=== PATIENT | male | born 1975 | race Caucasian/White ===

== ENCOUNTER 2023-06-10 10:59 | Day surgery (SDC) | payer OTHER ==
[~2023-06-10] VITALS: Ht 190.5 cm; Wt 120.2 kg
[2023-06-10] VITALS (8 sets, daily range): BP systolic 86–110; BP diastolic 50–75; PULSE 54–65; RESP 16–20; TEMP 98.4; O2SAT 95–97
[2023-06-10] MEDS ORDERED: IODIXANOL 320MG/ML 100ML BTL IV ONE (14:42)
[2023-06-10] MEDS ORDERED: MIDAZOLAM HCL 2MG/2ML 2ml VIAL (1mg/ml) ONE (14:42)
[2023-06-10] MEDS ORDERED: LIDOCAINE 2%HCL (LOCAL ANESTH.) INJ 20ML MDV ONE (14:42)
[2023-06-10] MEDS ORDERED: SODIUM CHL 0.9% 0 ML ONE (14:42)
[2023-06-10] MEDS: HEPARIN SODIUM (PORCINE) 5000 UNITS/ML 1ML VIAL ONE (14:59)
[2023-06-10] MEDS: VERAPAMIL 2.5MG/ML INJ 2ML VIAL IV ONE (14:59)
[2023-06-10] MEDS: fentaNYL CITRATE 100 MCG/2 ML VL ONE (15:00)
[2023-06-10] MEDS: ANGIOMAX 250 MG VIAL IV ONE (15:00)
[2023-06-10] MEDS ORDERED: ASPI-543 PO (16:11)
[2023-06-10] MEDS ORDERED: CARV6.2517 PO (16:11)
[2023-06-10] MEDS ORDERED: LOSA-534 PO (16:11)
[2023-06-10] MEDS ORDERED: TOPI50TA32 PO (16:11)
[2023-06-10] MEDS ORDERED: NITR0.4S29 SL (16:11)
[2023-06-10] MEDS ORDERED: MULT-1018 PO (16:11)
[2023-06-10] MEDS ORDERED: METF-370 PO (16:11)
[2023-06-10] MEDS ORDERED: ATOR20TA50 PO (16:11)
== END 2023-06-10 17:40 | disposition home or self-care (01) ==
LOC: CATH 10:59
PROVIDERS: ATTEND Internal Medicine
DX: R07.9 Chest pain, unspecified (principal); Z87.891 Personal history of nicotine dependence; Z88.1 Allergy status to other antibiotic agents; Z88.8 Allergy status to other drugs, medicaments and biological substances; Z82.49 Family history of ischemic heart disease and other diseases of the circulatory system; Z80.9 Family history of malignant neoplasm, unspecified
CPT/HCPCS: 93005; 93458; C1887; C1894; J1644; J2250; J3010; Q9967; 99152

== ENCOUNTER 2023-09-20 15:53 | Emergency (ER) | payer BC, OTHER ==
[~2023-09-20] VITALS: Ht 188 cm; Wt 122.0 kg
[~2023-09-20 15:53] MED LIST: ASPI-543 PO; ATOR20TA50 PO; CARV6.2517 PO; LOSA-534 PO; METF-370 PO; MULT-1018 PO; NITR0.4S29 SL; TOPI50TA32 PO
[2023-09-20 16:49] LABS: Basophils # (auto) 0.1 10 ^3/uL (0-0.2); Basophils % (auto) 0.8 % (0.0-2.0); Eosinophils # (auto) 0.3 10 ^3/uL (0-0.8); Eosinophils % (auto) 3.5 % (0.0-7.0); Hematocrit 45.5 % (41.0-53.0); Hemoglobin 15.7 g/dL (13.5-17.5); Lymphocytes # (auto) 3.8 10 ^3/uL (0.4-5.4); Lymphocytes % (auto) 42.6 % (10.0-50.0); Mean Corpuscular Hemoglobin 30.7 pg (28.0-32.0); Mean Corpuscular Hgb Conc. 34.4 g/dL (32.0-36.0); Mean Corpuscular Volume 89.3 fL (80.0-100.0); Monocytes # (auto) 0.7 10 ^3/uL (0-1.3); Monocytes % (auto) 7.4 % (0.0-12.0); Neutrophils # (auto) 4.1 10 ^3/uL (1.6-8.6); Neutrophils % (auto) 45.7 % (37.0-80.0); Nucleated Red Blood Cells % 0.1 %; Red Cell Distribution Width 13.5 % (11.8-14.3); White Blood Cell 8.9 10^3/uL (4.4-10.8)
[2023-09-20 16:55] LABS: Chloride 109 mmol/L (98-107); Potassium 3.6 mmol/L (3.5-5.1); Sodium 139 mmol/L (136-145)
[2023-09-20 16:56] LABS: Anion Gap 6 (5-15); Carbon Dioxide 24 mmol/L (20-30)
[2023-09-20 16:57] LABS: Calcium 9.1 mg/dL (8.7-10.4)
[2023-09-20 17:01] LABS: BUN/Creatinine Ratio 6.2 (10.0-20.0); Blood Urea Nitrogen 5 mg/dL (9-23); Glucose 136 mg/dL (74-106)
[2023-09-20] MEDS ORDERED: PANT40TA2 PO (17:25)
[2023-09-20] MEDS ORDERED: HYDROcodone-ACET 10/325MG TAB PO ONE (17:30)
[2023-09-20] MEDS: MAALOX PLUS or MAALOX 30 ML PO ONE (17:36)
[2023-09-20] MEDS: DONNATAL 5ml ORAL Elix (BELLADONNA ALK-PHENOBARB) PO ONE (17:36)
[2023-09-20 17:39] VITALS: PULSE 75; RESP 16; O2SAT 98
[2023-09-20 17:44] VITALS: BP 123/82; PULSE 75; RESP 16; TEMP 98.1; O2SAT 98
== END 2023-09-20 17:45 | disposition home or self-care (01) ==
LOC: ER 15:53 → EDSEX 15:53 → EDBD 15:53 → ER 17:44
DX: K29.70 Gastritis, unspecified, without bleeding (principal); E11.65 Type 2 diabetes mellitus with hyperglycemia; I11.0 Hypertensive heart disease with heart failure; I50.9 Heart failure, unspecified; J44.9 Chronic obstructive pulmonary disease, unspecified; Z88.2 Allergy status to sulfonamides
CPT/HCPCS: 36415; 74176; 80048; 85025